=== PATIENT | female | born 1990 | race Hispanic/Latino ===

== ENCOUNTER → 2018-01-18 | Outpatient (CLI) | payer OTHER ==
--- NOTE | 2018-01-19 07:17 | Diagnostic Imaging Report ---
Exam: Lumbar spine MRI without IV contrast History: Back pain Comparison studies: Chronic back pain with pain radiating into legs Technique: Sagittal and axial T2 , sagittal T1 and IR, axial spin density oblique. Intravenous contrast: None Findings: Number of lumbar vertebral bodies: 5. Alignment: Normal lordosis. Minimal lumbar curvature convex to the left. Approximately 2 mm grade 1 anterolisthesis of L5 on S1 with questionable chronic defects at the pars interarticularis. Soft tissues: No T2 hyperintense inflammatory changes. Paraspinal muscles: No signal abnormalities. Well-preserved. No atrophic changes Lower thoracic cord: Normal in signal and morphology. The tip of the conus is at T12-L1. Cauda equina: No masses. No arachnoiditis. Vertebrae: No compression fractures, infection or neoplasm. There is a chronic defect at the right L5 pars interarticularis with possible chronic defect at the left L5 pars interarticularis. Degenerative changes: L1-L2: No abnormalities. L2-L3: No abnormalities. L3-L4: No abnormalities. L4-L5: Small disc bulge does not result in significant canal or foraminal stenosis. L5-S1: Minimal anterolisthesis of L5 on S1 with associated uncovered disc/disc bulge and mild hypertrophic changes of the facets result in mild bilateral foraminal stenosis. No significant canal stenosis. IMPRESSION: 1. Minimal Grade 1 L5 isthmic spondylolisthesis with mild L5-S1 foraminal stenosis. 2. Small disc bulge at L4-L5. 3. No lumbar canal stenosis or nerve root impingement. Signed by: Dr. Jc Connell M.D. on 01/19/2018 7:13 AM
== END ==
LOC: MRI 15:48
PROVIDERS: ATTEND Obstetrics & Gynecology
DX: M54.5 Low back pain (principal); G89.29 Other chronic pain
CPT/HCPCS: 72148; 81025

== ENCOUNTER → 2020-02-27 | Outpatient (CLI) | payer OTHER ==
--- NOTE | 2020-02-27 11:34 | Diagnostic Imaging Report ---
MRI SPINE LUMBAR WO HISTORY: Bilateral leg pain COMPARISON: Lumbar spine MRI from 01/18/2018 TECHNIQUE: Sagittal T1, sagittal T2, sagittal STIR, axial T2, coronal T2, and axial proton density weighted images of the lumbar spine were obtained without contrast. DISCUSSION: Number of non-rib bearing lumbar vertebral bodies: 5. Alignment: Normal lordosis. No scoliosis. Vertebrae: No fractures, infection or neoplasm. Conus medullaris: Normal, ends at L1. Cauda equina: No masses or arachnoiditis. Posterior paraspinal muscles: Well preserved. There is mild bilateral paraspinal muscle edema throughout the lumbar spine. Soft tissues: Partially imaged T2 hyperintense fluid in the cul-de-sac may be physiologic. Partially imaged 3.9 cm T2 hyperintense cystic lesion in the right adnexum is present. The discs are overall preserved. T12-L1: Patent canal and foramina. L1-L2: Patent canal and foramina. L2-L3: Patent canal and foramina. There is periarticular edema along the left L2-L3 facet joint. L3-L4: Patent canal and foramina. There is mild periarticular edema along the left L3-L4 facet joint. L4-L5: Patent canal and foramina. There is periarticular edema along the bilateral L4-L5 facet joints, right greater than left. L5-S1: Unchanged minimal grade 1 anterolisthesis of L5 on S1 with chronic bilateral L5 pars defects. Mild bilateral foraminal stenoses due to uncovered disc bulge and facet slippage. No significant canal stenosis. Mild periarticular edema along the sacroiliac joint is partially imaged. IMPRESSION: 1. Unchanged minimal grade 1 anterolisthesis of L5 on S1 due to chronic bilateral L5 pars defects. 2. Mild bilateral degenerative foraminal stenoses at L5-S1. 3. No significant canal stenosis. 4. Multilevel facet synovitis - most prominent on the left at L2-L3 and on the right at L4-L5. 5. Partially imaged mild bilateral sacroiliitis. 6. Partially imaged 3.9 cm right adnexal cyst may be physiologic. Pelvic ultrasound can be obtained for further evaluation. Signed by: Dr. Javid Adams M.D. on 02/27/2020 11:31 AM
== END ==
LOC: MRI 08:33
PROVIDERS: ATTEND Specialist
DX: S39.012A Strain of muscle, fascia and tendon of lower back, initial encounter (principal)
CPT/HCPCS: 72148